=== PATIENT | male | born 1940 | race Caucasian/White ===

== ENCOUNTER → 2023-09-02 08:57 | Outpatient (REF) | payer MEDICARE, OTHER, SELFPAY ==
[2023-09-02 13:02] LABS: PSA, Total - Diagnostic 8.16 ng/ml (0.0-4.0)
== END ==
LOC: HWLAB 08:57
PROVIDERS: ATTENDING PHYSICIAN Urology; FAMILY PHYSICIAN Family Medicine
DX: C61 Malignant neoplasm of prostate (principal)
CPT/HCPCS: 36415; 84153

== ENCOUNTER 2023-11-27 21:47 | Emergency (ER) | payer MEDICARE, OTHER, SELFPAY ==
[2023-11-27 21:52] VITALS: BP 119/65; BMI 30.7
--- NOTE | 2023-11-27 23:24 | ED.SKININJ ---
HPI-Injury
General
Chief Complaint: Head Injury
Source: patient and family
Exam Limitations: none
Time Seen by Provider: 11/27/23 22:11
Nursing documentation reviewed up to this point in time: agreed with
Travel History
Have you had any contact with someone who has COVID-19?: No
Do you have any symptoms of coronavirus? Fever > 100 degrees, chills, cough, shortness of breath, sore throat, loss of taste or smell, muscle aches, or headache?: No
History of Present Illness-Injury
Initial Injury comments:
83-year-old male with history of COPD, HTN, HLD, GERD on clopidogrel states he was walking in his liver room today and hit the right side of his forehead on the TV console causing laceration. He did fall but denies any back to the head, he denies
neck pain, he did scrape both elbows. He did strike the upper right arm when he fell and there is a bruise with local swelling there. He denies bony pain of his arms or legs.
There was no loss of consciousness. He has no headache.
Past History
Past History
ED Past Medical History: Cancer (Skin cancer multiple times throughout his life), COPD, HTN, Hypercholesterolemia and Other (PNA. Tremors)
ED Past Surgical History: Orthopedic, Urological (TURP) and Other
Social History
Tobacco: Former smoker
Alcohol: Daily (Beer 2-3)
Personal:
Living: alone
Family History
Family History: Other (reviewed and non-contributory)
Review of Systems
Review of Systems
Allergies reviewed?: Yes
All Other Systems: ROS reviewed and negative except as documented in HPI and ROS
Constitutional: Denies fever or fatigue
Respiratory: Denies trouble breathing
Cardiac: Denies chest pain or syncope
ABD/GI: Denies abdominal pain, nausea or vomiting
Musculoskeletal: Denies neck pain or back pain
Skin: Reports other (cut forehead)
Neurological: Reports no symptoms
Skin Exam
Laceration
Right Forehead:
Length in cm: 4
Orientation: diagonal
Type of Laceration: simple
Any active bleeding?: low grade venous oozing
Phy Exam
Physical Exam
Physical Exam:
GENERAL: No acute distress. A&Ox3.
CONSTITUTIONAL: Afebrile.
EYES: PERRL, conjunctivae normal
Neck: Supple
ENMT: moist mucus membranes, Pharynx nl
RESPIRATORY: Regular respirations, nonlabored, lungs clear.
CARDIOVASCULAR: Regular rate and rhythm, no murmurs, no rubs.
GI: Soft, nontender, normal BS
MUSCULOSKELETAL: Moves with ease. Well perfused.
SKIN: Warm, dry, pink. Three small deep clean abrasions right elbow, one small deep clean abrasion left elbow
PSYCH: Normal mood and affect. Well kept, interactive and appropriate
NEUROLOGIC: Awake, alert and oriented. Speech clear. Cranial nerves II through XII intact. Ambulates well with steady gait. No focal neurological deficits
Course
Orders/Labs/Results
Orders:
Orders
11/27/23 22:27
CT Head W/o Iv Contrast Urgent
Comment:
Reason For Exam: R scalp lac, fall, Plavix
Vital Signs
Initial and Last Documented VS:
Initial Vital Signs
Temp Pulse Resp Pulse Ox
98.2 F 84 16 100
11/27/23 21:50 11/27/23 21:50 11/27/23 21:50 11/27/23 21:50
Last Documented Vital Signs
Temp Pulse Resp BP Pulse Ox
98.3 F 85 18 124/88 98
11/27/23 23:50 11/27/23 23:50 11/27/23 23:50 11/27/23 23:50 11/27/23 23:50
Procedures
Laceration Closure
Right Forehead:
Status of Wound: clean
Size of Wound in cm: 4
Description of Wound Edges: sharp
Preparation: cleaned with saline
Anesthesia: 1% Lidocaine with epi
Revision/Debridement: routine- no revision
Type of Closure: single layer closure
Skin Closure Material: 4-0 nylon
Number of sutures: 7
Additional information:
ATB ointment and dressing applied
MDM/Problems Addressed
Differential Diagnosis Includes:
brain bleed, concussion
MDM/Problems Addressed:
83-year-old male with history of COPD, HTN, HLD, GERD on clopidogrel states he was walking in his liver room today and hit the right side of his forehead on the TV console causing laceration. He did fall but denies any back to the head, he denies
neck pain, he did scrape both elbows. He did strike the upper right arm when he fell and there is a bruise with local swelling there. He denies bony pain of his arms or legs.
There was no loss of consciousness. He has no headache.
11:35 PM
Neuro exam is normal, pt very pleasant, jovial, OOB and ambulating with normal gait
Head CT shows nothing acute.
Forehead wound sutured
Patient discharged to care of family.
*Critical Care Note
Total Time (30-74mins, 75-104mins- exclusive of procedures): Not Applicable
ED Attending Note
-
Portions of this chart may have been created with voice recognition software.� Occasional wrong word or��sound alike� substitutions may have occurred due to the inherent limitations of voice recognition software.
Discharge Plan
Departure
Patient Disposition: Home (Routine Discharge)
Date of Disposition: 11/27/23
Time of Disposition: 23:35
Patient with high blood pressure during this ER visit?: No
Condition: Good
Discharge Problem:
Fall from slip, trip, or stumble, Forehead laceration, Abrasion of elbow
Instructions: Head Injury in Adults (DC), Laceration Repair With Stitches (DC)
Prescriptions:
No Action
amlodipine 5 MG tablet
5 mg PO .Q48
doxazosin 2 MG tablet
2 mg PO DAILY
multivitamin [Daily Multiple] 1 EACH tablet
1 tab PO DAILY
docosahexaenoic acid-vit C-lut 1 EACH capsule
1 tab PO DAILY
fluticasone propion-salmeterol [Advair Diskus] 1 DISK blister with device
1 puff inhalation BID
clopidogrel 75 MG tablet
75 mg PO DAILY Qty: 30 1RF
atorvastatin 10 MG tablet
10 mg PO QPM Qty: 30 1RF
aspirin 81 MG tablet,delayed release (DR/EC)
81 mg PO DAILY
polyethylene glycol 400 [Blink Tears] 15 ML drops
1 drp BOTH EYES DAILY
Budesonide
0.6 mg inhalation DAILY
albuterol sulfate 1 PUFF HFA aerosol inhaler
1 puff inhalation R Q4HPRN PRN (Reason: SOB)
cholecalciferol (vitamin D3) 2,000 UNITS tablet
2,000 units PO DAILY
Referrals:
Jann Aguayo MD [Family Provider] - Call in 1-3 days for appt
Activity Restrictions/Additional Instructions:
As we discussed, have the sutures removed in 7-8 days by your family doctor
Return here immediately for vomiting more than once in 1 hour, confusion or headache that gets worse despite Tylenol
Interventions
Interventions:
*Risk Screen - Suicide Last Done: 11/27/23 21:50
*General Assessment Last Done: 11/27/23 22:48
*Neglect/Abuse Screening Last Done: 11/27/23 21:50
*ED COVID-19 Vaccine History Last Done: 11/27/23 22:48
*Nursing Disposition Last Done: 11/28/23 00:03
ED- Neurological Assessment Last Done: 11/27/23 22:15
ED-Skin Assessment Last Done: 11/27/23 22:15
Discharge Date and Time
Discharge Date/Time: 11/28/23 00:04
Print Language: [place]
[2023-11-27 23:50] VITALS: BP 124/88
== END 2023-11-28 00:04 | disposition home or self-care (01) ==
LOC: EMR 21:47
PROVIDERS: EMERGENCY PHYSICIAN Student in an Organized Health Care Education/Training Program; FAMILY PHYSICIAN Family Medicine
DX: S01.81XA Laceration without foreign body of other part of head, initial encounter (principal); S40.021A Contusion of right upper arm, initial encounter; S50.312A Abrasion of left elbow, initial encounter; S50.311A Abrasion of right elbow, initial encounter; W18.09XA Striking against other object with subsequent fall, initial encounter; Y93.01 Activity, walking, marching and hiking; J44.9 Chronic obstructive pulmonary disease, unspecified; I10 Essential (primary) hypertension; K21.9 Gastro-esophageal reflux disease without esophagitis; E78.00 Pure hypercholesterolemia, unspecified; N40.0 Benign prostatic hyperplasia without lower urinary tract symptoms; M19.90 Unspecified osteoarthritis, unspecified site; Z79.02 Long term (current) use of antithrombotics/antiplatelets; Z96.653 Presence of artificial knee joint, bilateral; Z85.828 Personal history of other malignant neoplasm of skin; Z85.46 Personal history of malignant neoplasm of prostate; Z87.891 Personal history of nicotine dependence; Z87.01 Personal history of pneumonia (recurrent)
CPT/HCPCS: 99284; 12013; 70450

== ENCOUNTER → 2024-01-13 07:57 | Outpatient (REF) | payer MEDICARE, OTHER, SELFPAY | LOC: DHVS 07:57 | PROVIDERS: ATTENDING PHYSICIAN Surgery Vascular Surgery; FAMILY PHYSICIAN Family Medicine | DX: I73.9 Peripheral vascular disease, unspecified (principal) | CPT/HCPCS: 93922; 93925 ==

== ENCOUNTER → 2024-01-27 11:45 | Outpatient (REF) | payer MEDICARE, OTHER, SELFPAY | LOC: HWRAD 11:45 | PROVIDERS: ATTENDING PHYSICIAN Nurse Practitioner Family | DX: R05.8 Other specified cough (principal) | CPT/HCPCS: 71046 ==

== ENCOUNTER → 2024-03-09 08:23 | Outpatient (REF) | payer MEDICARE, OTHER, SELFPAY ==
[2024-03-09 10:21] LABS: PSA, Total - Diagnostic 7.07 ng/ml (0.0-4.0)
== END ==
LOC: HWLAB 08:23
PROVIDERS: ATTENDING PHYSICIAN Urology; FAMILY PHYSICIAN Family Medicine
DX: C61 Malignant neoplasm of prostate (principal)
CPT/HCPCS: 36415; 84153

== ENCOUNTER → 2024-04-08 08:09 | Outpatient (REF) | payer MEDICARE, OTHER, SELFPAY ==
[2024-04-08 09:47] LABS: % Basophils 0.8 % (0-2); % Eosinophils 4.4 % (0-6); % Immature Granulocytes 0.4 % (0-0.5); % Monocytes 10.3 % (1.7-9.3); % Neutrophils 57.1 % (42.2-75.2); Absolute Basophils 0.1 10^3/uL (0-0.2); Absolute Eosinophils 0.3 10^3/uL (0-0.7); Absolute Lymphocytes 2.1 10^3/uL (1.2-3.4); Absolute Monocytes 0.8 10^3/uL (0.1-0.6); Absolute Neutrophils 4.5 10^3/uL (1.4-6.5); Hematocrit 38.8 % (39.0-52.0); Hemoglobin 13.3 g/dL (13.0-18.0); Mean Corp Hgb Conc. 34.3 g/dL (33.0-37.0); Mean Corpuscular Hgb 31.1 pg (27.0-31.0); Mean Corpuscular Volume 90.7 fL (80.0-94.0); Mean Platelet Volume 9.1 fL (7.4-10.4); Nucleated Red Blood Cells % 0 % (-); Platelet Count 292 10^3/uL (130-400); Red Blood Cell Count 4.28 10^6/uL (4.70-6.10); Red Cell Dist. Width 13.8 % (11.5-14.5); White Blood Cell Count 7.8 10^3/uL (4.8-10.8)
[2024-04-08 10:29] LABS: ALT (SGPT) 19 U/L (0-50); AST (SGOT) 28 U/L (17-59); Albumin 4.1 g/dl (3.5-5.0); Alkaline Phosphatase 102 U/L (38-126); Blood Urea Nitrogen 10 mg/dl (9-20); Calcium 9.3 mg/dl (8.4-10.2); Carbon Dioxide 29 mmol/L (22-30); Chloride 98 mmol/L (98-107); Glucose 117 mg/dl (70-99); Potassium 4.9 mmol/L (3.5-5.1); Sodium 137 mmol/L (135-145); Total Bilirubin 0.7 mg/dl (0.2-1.3); Total Cholesterol 169 mg/dl (50-199); Total Protein 7.1 g/dl (6.3-8.2); Triglyceride 40 mg/dl (10-149); Very Low Density Lipoprotein 8 mg/dl (0-30); eGFR > 60.00
[2024-04-08 10:41] LABS: HDL Cholesterol 126 mg/dl; LDL Cholesterol, Calculated 35 mg/dl
== END ==
LOC: HWLAB 08:09
PROVIDERS: ATTENDING PHYSICIAN Family Medicine
DX: I10 Essential (primary) hypertension (principal); I73.9 Peripheral vascular disease, unspecified
CPT/HCPCS: 36415; 80053; 80061; 85025

== ENCOUNTER 2024-07-27 13:21 | Emergency (ER) | payer MEDICARE, OTHER, SELFPAY ==
[2024-07-27 13:28] VITALS: BP 147/73
--- NOTE | 2024-07-27 14:44 | ED.GENMED ---
History of Present Illness
General
Chief Complaint: Fall
Source: patient
Time Seen by Provider: 07/27/24 14:33
History of Present Illness
History of Present Illness:
84-year-old male with past medical history of COPD, hypertension, hyperlipidemia, previous prostate cancer presenting to the emergency department for evaluation after he slipped and fell on some ice yesterday injuring his left hand and wrist noting
continued ecchymosis and edema and pain prompting him to come to the ER today. Denies any other injury including head injury, LOC, vomiting, headaches or any other extremity related injury.
Past History
Past History
ED Past Medical History: Cancer (Skin cancer multiple times throughout his life), COPD, HTN, Hypercholesterolemia and Other (PNA. Tremors)
ED Past Surgical History: Orthopedic, Urological (TURP) and Other
Social History
Tobacco: Former smoker
Alcohol: Daily (Beer 2-3)
Drug: None
Personal:
Living: alone
Family History
Family History: Other (reviewed and non-contributory)
Review of Systems
Review of Systems
All Other Systems: ROS reviewed and negative except as documented in HPI and ROS
Phy Exam
Physical Exam
Physical Exam:
GENERAL: Alert , in no apparent distress
EYE: conjunctiva clear
Head: Normocephalic atraumatic
NECK: Supple,
ENT: mmm.
LUNGS: no acute respiratory distress
NEUROLOGICAL: Alert and oriented
SKIN: Warm and dry, scattered ecchymosis that appears older on bilateral upper extremities
MUSCULOSKELETAL: Left upper extremity: There is soft tissue swelling along the dorsum of the hand extending towards the wrist. Patient has scattered abrasions over the index and middle finger. He does allow for range of motion of the digits as
well as wrist, elbow and shoulder without much difficulty. He does endorse more pain with wrist flexion. Easily palpable radial pulse. Cap refill less than 2 seconds. Sensation grossly intact to light touch.
PSYCH: Normal and appropriate interaction.
Scores
Heart Failure Risk
Heart Failure Risk Score: Not Applicable
Heart Score for Chest Pain Patients
STEMI patient?: Not applicable
Withdrawal Assessment of Alcohol
Withdrawal Assessment Completed?: Not applicable
Course
Orders/Labs/Results
Orders:
Orders
07/27/24 13:31
CR Hand - Left Min 3 Views Urgent
Comment:
Reason For Exam: fall yesterday
Wrist, Left 3 Views CR [CR Wrist - Left Min 3 Views] Urgent
Comment:
Reason For Exam: fall yesterday
Vital Signs
Initial and Last Documented VS:
Initial Vital Signs
Temp Pulse Resp BP Pulse Ox
97.8 F 72 17 147/73 99
07/27/24 13:28 07/27/24 13:28 07/27/24 13:28 07/27/24 13:28 07/27/24 13:28
Last Documented Vital Signs
Temp Pulse Resp BP Pulse Ox
97.8 F 72 17 147/73 99
07/27/24 13:28 07/27/24 13:28 07/27/24 13:28 07/27/24 13:28 07/27/24 13:28
MDM/Problems Addressed
Differential Diagnosis Includes:
Sprain, fracture, contusion
MDM/Problems Addressed:
84-year-old male presenting the ER for evaluation of left hand/wrist pain from an accidental fall yesterday. No other injuries sustained. X-rays were ordered from triage which show significant degenerative changes/arthritis but no evidence for
acute fracture. Will place patient in cock-up splint for comfort. He is requesting something for pain. Short-term course of Percocet provided. Patient was advised not to take while driving or mix with any alcohol due to potential side effects.
Patient expressed understanding. Can continue to take/Tylenol as needed for pain. Follow-up with orthopedics as needed.
*Radiology
Radiology exam reviewed: radiology read reviewed
*Pulse Oximetry
Patient hypoxic: no
*Critical Care Note
Total Time (30-74mins, 75-104mins- exclusive of procedures): Not Applicable
ED Attending Note
-
Portions of this chart may have been created with voice recognition software.� Occasional wrong word or��sound alike� substitutions may have occurred due to the inherent limitations of voice recognition software.
Discharge Plan
Departure
Patient Disposition: Home (Routine Discharge)
Date of Disposition: 07/27/24
Time of Disposition: 14:44
Patient with high blood pressure during this ER visit?: Yes
Discharge Problem:
Left wrist sprain, Contusion of hand, left
Instructions: Wrist Sprain ED
Prescriptions:
New
oxycodone-acetaminophen [Percocet] 5-325 mg tablet
1 tab PO Q6HPRN PRN (Reason: pain) Qty: 5 0RF
No Action
amlodipine 5 MG tablet
5 mg PO .Q48
doxazosin 2 MG tablet
2 mg PO DAILY
multivitamin [Daily Multiple] 1 EACH tablet
1 tab PO DAILY
docosahexaenoic acid-vit C-lut 1 EACH capsule
1 tab PO DAILY
fluticasone propion-salmeterol [Advair Diskus] 1 DISK blister with device
1 puff inhalation BID
clopidogrel 75 MG tablet
75 mg PO DAILY Qty: 30 1RF
atorvastatin 10 MG tablet
10 mg PO QPM Qty: 30 1RF
aspirin 81 MG tablet,delayed release (DR/EC)
81 mg PO DAILY
polyethylene glycol 400 [Blink Tears] 15 ML drops
1 drp BOTH EYES DAILY
Budesonide
0.6 mg inhalation DAILY
albuterol sulfate 1 PUFF HFA aerosol inhaler
1 puff inhalation R Q4HPRN PRN (Reason: SOB)
cholecalciferol (vitamin D3) 2,000 UNITS tablet
2,000 units PO DAILY
Referrals:
Jessy Yao I., DO [Active] - (Ortho)
Interventions
Interventions:
*Risk Screen - Suicide Last Done: 07/27/24 13:29
*General Assessment Last Done: 07/27/24 13:29
*Neglect/Abuse Screening Last Done: 07/27/24 13:29
*ED COVID-19 Vaccine History Last Done: 07/27/24 13:29
*Nursing Disposition Last Done: 07/27/24 15:27
ED-Musculoskeletal Assessment Last Done: 07/27/24 14:25
ED- Neurological Assessment Last Done: 07/27/24 14:25
ED-Skin Assessment Last Done: 07/27/24 14:30
Discharge Date and Time
Discharge Date/Time: 07/27/24 15:28
Print Language: [place]
== END 2024-07-27 15:28 | disposition home or self-care (01) ==
LOC: EMR 13:21
PROVIDERS: EMERGENCY PHYSICIAN Emergency Medicine; FAMILY PHYSICIAN Family Medicine
DX: S63.502A Unspecified sprain of left wrist, initial encounter (principal); S60.222A Contusion of left hand, initial encounter; S60.411A Abrasion of left index finger, initial encounter; S60.413A Abrasion of left middle finger, initial encounter; W00.0XXA Fall on same level due to ice and snow, initial encounter; E78.00 Pure hypercholesterolemia, unspecified; I10 Essential (primary) hypertension; J44.9 Chronic obstructive pulmonary disease, unspecified; Z85.828 Personal history of other malignant neoplasm of skin; Z87.891 Personal history of nicotine dependence
CPT/HCPCS: 29125; 99283; 73110; 73130

== ENCOUNTER → 2024-10-07 09:20 | Outpatient (REF) | payer MEDICARE, OTHER, SELFPAY ==
[2024-10-07 12:55] LABS: % Basophils 1.2 % (0-2); % Eosinophils 5.6 % (0-6); % Immature Granulocytes 0.3 % (0-0.5); % Lymphocytes 23.9 % (20.5-51.1); % Monocytes 9.8 % (1.7-9.3); % Neutrophils 59.2 % (42.2-75.2); ALT (SGPT) 21 U/L (0-50); AST (SGOT) 30 U/L (17-59); Absolute Basophils 0.1 10^3/uL (0-0.2); Absolute Eosinophils 0.4 10^3/uL (0-0.7); Absolute Lymphocytes 1.8 10^3/uL (1.2-3.4); Absolute Monocytes 0.7 10^3/uL (0.1-0.6); Absolute Neutrophils 4.5 10^3/uL (1.4-6.5); Albumin 4.3 g/dl (3.5-5.0); Alkaline Phosphatase 100 U/L (38-126); Blood Urea Nitrogen 13 mg/dl (9-20); Calcium 9.5 mg/dl (8.4-10.2); Carbon Dioxide 30 mmol/L (22-30); Chloride 101 mmol/L (98-107); Glucose 96 mg/dl (70-99); Hematocrit 39.8 % (39.0-52.0); Hemoglobin 13.7 g/dL (13.0-18.0); Mean Corp Hgb Conc. 34.4 g/dL (33.0-37.0); Mean Corpuscular Hgb 32.2 pg (27.0-31.0); Mean Corpuscular Volume 93.6 fL (80.0-94.0); Mean Platelet Volume 9.8 fL (7.4-10.4); Nucleated Red Blood Cells % 0 % (-); Platelet Count 234 10^3/uL (130-400); Potassium 5.2 mmol/L (3.5-5.1); Red Blood Cell Count 4.25 10^6/uL (4.70-6.10); Red Cell Dist. Width 12.9 % (11.5-14.5); Sodium 139 mmol/L (135-145); Total Bilirubin 0.7 mg/dl (0.2-1.3); Total Cholesterol 179 mg/dl (50-199); Total Protein 7.3 g/dl (6.3-8.2); Triglyceride 47 mg/dl (10-149); Very Low Density Lipoprotein 9 mg/dl (0-30); White Blood Cell Count 7.5 10^3/uL (4.8-10.8); eGFR > 60.00
[2024-10-07 13:05] LABS: HDL Cholesterol 132 mg/dl; LDL Cholesterol, Calculated 38 mg/dl; LDL Cholesterol, Direct 46 mg/dl
== END ==
LOC: HWLAB 09:20
PROVIDERS: ATTENDING PHYSICIAN Family Medicine
DX: I73.9 Peripheral vascular disease, unspecified (principal); I10 Essential (primary) hypertension
CPT/HCPCS: 36415; 80053; 80061; 83721; 85025

== ENCOUNTER → 2025-01-18 08:22 | Outpatient (REF) | payer MEDICARE, OTHER, SELFPAY | LOC: RAD 08:22 | PROVIDERS: ATTENDING PHYSICIAN Physician Assistant; FAMILY PHYSICIAN Family Medicine | DX: I73.9 Peripheral vascular disease, unspecified (principal) | CPT/HCPCS: 93922; 93925 ==

== ENCOUNTER → 2025-02-10 07:56 | Outpatient (REF) | payer MEDICARE, OTHER, SELFPAY | LOC: RAD 07:56 | PROVIDERS: ATTENDING PHYSICIAN Ophthalmology | DX: H35.82 Retinal ischemia (principal) | CPT/HCPCS: 93880 ==

== ENCOUNTER → 2025-02-23 10:16 | Outpatient (REF) | payer MEDICARE, OTHER, SELFPAY ==
[2025-02-23 12:30] LABS: PSA, Total - Diagnostic 12.20 ng/ml (0.0-4.0)
== END ==
LOC: HWLAB 10:16
PROVIDERS: ATTENDING PHYSICIAN Urology; FAMILY PHYSICIAN Family Medicine
DX: C61 Malignant neoplasm of prostate (principal)
CPT/HCPCS: 84153